=== PATIENT | male | born 1950 | race American Indian/Alaskan Native ===

== ENCOUNTER 2018-08-31 20:36 | Emergency (ER) | payer OTHER ==
[2018-08-31 20:59] VITALS: BP 150/89
[2018-08-31] MEDS ORDERED: MOTRIN PO ONE (21:05)
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
--- NOTE | 2018-09-01 01:33 | XRay Report ---
FINAL REPORT EXAM: XR SPINE CERVICAL 2-3V HISTORY: neck pain TECHNIQUE: 3 views of the cervical spine PRIORS: None. FINDINGS: The vertebral bodies are normal in height. Vertebral alignment is normal. There is moderate loss of disc height and endplate osteophyte formation at C4-5 and C5-6.. There is no evidence of fracture or subluxation. The soft tissues are unremarkable. IMPRESSION: Advanced degenerative disc disease at C4-5 and C5-6.
--- NOTE | 2018-09-01 01:57 | XRay Report ---
FINAL REPORT EXAM: XR SPINE LUMBOSACRAL 2-3V HISTORY: low back pain TECHNIQUE: 2 views of the lumbar spine PRIORS: None. FINDINGS: The lumbar vertebral bodies are normal in height. Vertebral alignment is normal. The disc spaces appear well-preserved. The soft tissues are unremarkable. IMPRESSION: Normal L-spine series.
== END 2018-09-01 02:12 | disposition home or self-care (01) ==
LOC: ED 20:36
DX: S13.4XXA Sprain of ligaments of cervical spine, initial encounter (principal); S39.012A Strain of muscle, fascia and tendon of lower back, initial encounter; G43.909 Migraine, unspecified, not intractable, without status migrainosus; J45.909 Unspecified asthma, uncomplicated; F17.200 Nicotine dependence, unspecified, uncomplicated; V49.49XA Driver injured in collision with other motor vehicles in traffic accident, initial encounter; Y93.89 Activity, other specified; Y92.89 Other specified places as the place of occurrence of the external cause; Y99.8 Other external cause status
CPT/HCPCS: 72040; 72100

== ENCOUNTER 2019-08-22 15:24 | Emergency (ER) | payer MEDICARE, OTHER ==
[2019-08-22 16:16] LABS: Basophils % (Auto) 0.4 % (0.0-1.8); Eosinophils # (Auto) 0.9 K/mm3 (0.0-0.4); Hematocrit 30.3 % (35.5-45.6); Lymphocytes # (Auto) 1.2 K/mm3 (1.2-5.4); Lymphocytes % (Auto) 11.4 % (13.4-35.0); Mean Corpuscular HGB Conc 33 % (32-34); Mean Corpuscular Volume 96 fl (84-94); Monocytes # (Auto) 0.5 K/mm3 (0.0-0.8); Monocytes % (Auto) 4.9 % (0.0-7.3); Platelet Count 346 K/mm3 (140-440); Red Blood Count 3.16 M/mm3 (3.65-5.03); Red Cell Distribution Width 15.3 % (13.2-15.2)
[2019-08-22 16:30] LABS: Albumin 3.8 g/dL (3.9-5); Calcium 8.6 mg/dL (8.4-10.2)
[2019-08-22 17:38] LABS: Bilirubin,Urine NEG (Negative); Blood,Urine NEG (Negative); Color,Urine Yellow (Yellow); Mucus,Urine FEW /HPF; Protein,Urine <15 mg/dL mg/dL (Negative); Urobilinogen,Urine < 2.0 mg/dL (<2.0)
[2019-08-22] MEDS ORDERED: MORPHINE 4 MG/1 ML INJ IV ONE (18:53)
[2019-08-22] MEDS ORDERED: ONDANSETRON 4 MG/2 ML INJ IV ONE (18:53)
[2019-08-22] MEDS ORDERED: SODIUM CHLORIDE 0.9% 1000 ML 1,000 ML IV ONE (18:53)
[2019-08-22] MEDS ORDERED: MORPHINE 2 MG/1 ML INJ ONE ×2 (19:02→21:28)
--- NOTE | 2019-08-22 19:04 | Emergency Department Report ---
ED General Adult HPI - General Chief complaint: Nausea/Vomiting/Diarrhea Stated complaint: NAUSEA/WEAK/STOMACH PAIN Time Seen by Provider: 08/22/19 17:52 Source: patient Mode of arrival: Ambulatory Limitations: No Limitations - History of Present Illness Initial comments: The patient presents to the emergency department with a chief complaint of diffuse abdominal pain that has become progressively worse over the last 2 weeks. The patient does complain of nausea and some vomiting. Patient denies any chest pain, shortness breath, or headache. -: week(s) Location: abdomen Severity scale (0 -10): 6 Quality: sharp Consistency: constant Improves with: none Worsens with: none Associated Symptoms: denies other symptoms Treatments Prior to Arrival: none - Related Data Previous Rx's Medication Instructions Recorded Last Taken Type Cyclobenzaprine HCl [Flexeril 5 MG 5 mg PO QHS PRN #10 tab 09/01/18 Unknown Rx TAB] Ibuprofen [Motrin] 600 mg PO Q8H PRN #20 tablet 09/01/18 Unknown Rx Ciprofloxacin HCl [Ciprofloxacin 500 mg PO Q12HR #20 tab 08/22/19 Unknown Rx TAB] metroNIDAZOLE [Flagyl] 500 mg PO Q12HR #20 tab 08/22/19 Unknown Rx Allergies Allergy/AdvReac Type Severity Reaction Status Date / Time No Known Allergies Allergy Verified 08/22/19 15:40 ED Review of Systems ROS: Stated complaint: NAUSEA/WEAK/STOMACH PAIN Other details as noted in HPI Comment: All other systems reviewed and negative Constitutional: denies: chills, fever Eyes: denies: eye pain, eye discharge, vision change ENT: denies: ear pain, throat pain Respiratory: denies: cough, shortness of breath, wheezing Cardiovascular: denies: chest pain, palpitations Endocrine: no symptoms reported Gastrointestinal: abdominal pain. denies: nausea, diarrhea Genitourinary: denies: urgency, dysuria Musculoskeletal: denies: back pain, joint swelling, arthralgia Skin: denies: rash, lesions Neurological: denies: headache, weakness, paresthesias Psychiatric: denies: anxiety, depression Hematological/Lymphatic: denies: easy bleeding, easy bruising ED Past Medical Hx - Past Medical History Hx Hypertension: Yes Hx Headaches / Migraines: Yes Hx Asthma: Yes Additional medical history: Bronchitis pinched nerve in neck pressing on spinal cord - Surgical History Past Surgical History?: Yes Additional Surgical History: shoulder, hand and knees - Social History Smoking Status: Current Some Day Smoker Substance Use Type: None - Medications Home Medications: Home Medications Medication Instructions Recorded Confirmed Last Taken Type Cyclobenzaprine HCl [Flexeril 5 MG 5 mg PO QHS PRN #10 tab 09/01/18 Unknown Rx TAB] Ibuprofen [Motrin] 600 mg PO Q8H PRN #20 tablet 09/01/18 Unknown Rx Ciprofloxacin HCl [Ciprofloxacin 500 mg PO Q12HR #20 tab 08/22/19 Unknown Rx TAB] metroNIDAZOLE [Flagyl] 500 mg PO Q12HR #20 tab 08/22/19 Unknown Rx ED Physical Exam - General Limitations: No Limitations General appearance: alert, in no apparent distress - Head Head exam: Present: atraumatic, normocephalic - Eye Eye exam: Present: normal appearance, PERRL, EOMI - ENT ENT exam: Present: mucous membranes dry - Neck Neck exam: Present: normal inspection - Respiratory Respiratory exam: Present: normal lung sounds bilaterally. Absent: respiratory distress - Cardiovascular Cardiovascular Exam: Present: regular rate, normal rhythm. Absent: systolic murmur, diastolic murmur, rubs, gallop - GI/Abdominal GI/Abdominal exam: Present: soft, tenderness (tenderness to palpation of the epigastrium and right upper quadrant on exam ), normal bowel sounds. Absent: distended - Rectal Rectal exam: Present: deferred - Extremities Exam Extremities exam: Present: normal inspection - Back Exam Back exam: Present: normal inspection - Neurological Exam Neurological exam: Present: alert, oriented X3 - Psychiatric Psychiatric exam: Present: normal affect, normal mood - Skin Skin exam: Present: warm, dry, intact, normal color. Absent: rash ED Course Vital Signs 08/22/19 08/22/19 08/22/19 15:27 17:32 17:46 Temperature 98 F Pulse Rate 95 H Respiratory 18 Rate Blood Pressure Blood Pressure 141/89 [Right] O2 Sat by Pulse 100 73 L 98 Oximetry 08/22/19 08/22/19 08/22/19 18:00 18:16 18:22 Temperature 99.4 F Pulse Rate 87 Respiratory 17 Rate Blood Pressure Blood Pressure 162/88 [Right] O2 Sat by Pulse 98 99 98 Oximetry 08/22/19 08/22/19 18:30 20:04 Temperature Pulse Rate 83 Respiratory 15 Rate Blood Pressure 162/88 152/78 Blood Pressure [Right] O2 Sat by Pulse 99 Oximetry ED Medical Decision Making - Lab Data Result diagrams: 08/22/19 15:57 08/22/19 15:57 Lab Results 08/22/19 08/22/19 08/22/19 Range/Units 15:57 15:57 17:28 WBC 10.1 (4.5-11.0) K/mm3 RBC 3.16 L (3.65-5.03) M/mm3 Hgb 10.0 L (11.8-15.2) gm/dl Hct 30.3 L (35.5-45.6) % MCV 96 H (84-94) fl MCH 32 (28-32) pg MCHC 33 (32-34) % RDW 15.3 H (13.2-15.2) % Plt Count 346 (140-440) K/mm3 Lymph % (Auto) 11.4 L (13.4-35.0) % Moffat % (Auto) 4.9 (0.0-7.3) % Eos % (Auto) 9.0 H (0.0-4.3) % Baso % (Auto) 0.4 (0.0-1.8) % Lymph # 1.2 (1.2-5.4) K/mm3 Moffat # 0.5 (0.0-0.8) K/mm3 Eos # 0.9 H (0.0-0.4) K/mm3 Baso # 0.0 (0.0-0.1) K/mm3 Seg Neutrophils % 74.3 H (40.0-70.0) % Seg Neutrophils # 7.5 (1.8-7.7) K/mm3 Sodium 140 (137-145) mmol/L Potassium 5.8 H (3.6-5.0) mmol/L Chloride 103.3 (98-107) mmol/L Carbon Dioxide 28 (22-30) mmol/L Anion Gap 15 mmol/L BUN 10 (9-20) mg/dL Creatinine 1.5 (0.8-1.5) mg/dL Estimated GFR 56 ml/min BUN/Creatinine Ratio 7 % Glucose 120 H (75-100) mg/dL Calcium 8.6 (8.4-10.2) mg/dL Total Bilirubin 0.20 (0.1-1.2) mg/dL AST 23 (5-40) units/L ALT 16 (7-56) units/L Alkaline Phosphatase 81 (35-129) units/L Troponin T (0.00-0.029) ng/mL Total Protein 7.3 (6.3-8.2) g/dL Albumin 3.8 L (3.9-5) g/dL Albumin/Globulin Ratio 1.1 % Lipase 41 (13-60) units/L Urine Color Yellow (Yellow) Urine Turbidity Clear (Clear) Urine pH 6.0 (5.0-7.0) Ur Specific [place] 1.011 (1.003-1.030) Urine Protein <15 mg/dl (Negative) mg/dL Urine Glucose (UA) Neg (Negative) mg/dL Urine Ketones Neg (Negative) mg/dL Urine Blood Neg (Negative) Urine Nitrite Neg (Negative) Urine Bilirubin Neg (Negative) Urine Urobilinogen < 2.0 (<2.0) mg/dL Ur Leukocyte Esterase Neg (Negative) Urine WBC (Auto) 1.0 (0.0-6.0) /HPF Urine RBC (Auto) 3.0 (0.0-6.0) /HPF Urine Mucus Few /HPF 08/22/19 Range/Units 19:12 WBC (4.5-11.0) K/mm3 RBC (3.65-5.03) M/mm3 Hgb (11.8-15.2) gm/dl Hct (35.5-45.6) % MCV (84-94) fl MCH (28-32) pg MCHC (32-34) % RDW (13.2-15.2) % Plt Count (140-440) K/mm3 Lymph % (Auto) (13.4-35.0) % Moffat % (Auto) (0.0-7.3) % Eos % (Auto) (0.0-4.3) % Baso % (Auto) (0.0-1.8) % Lymph # (1.2-5.4) K/mm3 Moffat # (0.0-0.8) K/mm3 Eos # (0.0-0.4) K/mm3 Baso # (0.0-0.1) K/mm3 Seg Neutrophils % (40.0-70.0) % Seg Neutrophils # (1.8-7.7) K/mm3 Sodium (137-145) mmol/L Potassium (3.6-5.0) mmol/L Chloride (98-107) mmol/L Carbon Dioxide (22-30) mmol/L Anion Gap mmol/L BUN (9-20) mg/dL Creatinine (0.8-1.5) mg/dL Estimated GFR ml/min BUN/Creatinine Ratio % Glucose (75-100) mg/dL Calcium (8.4-10.2) mg/dL Total Bilirubin (0.1-1.2) mg/dL AST (5-40) units/L ALT (7-56) units/L Alkaline Phosphatase (35-129) units/L Troponin T < 0.010 (0.00-0.029) ng/mL Total Protein (6.3-8.2) g/dL Albumin (3.9-5) g/dL Albumin/Globulin Ratio % Lipase (13-60) units/L Urine Color (Yellow) Urine Turbidity (Clear) Urine pH (5.0-7.0) Ur Specific [place] (1.003-1.030) Urine Protein (Negative) mg/dL Urine Glucose (UA) (Negative) mg/dL Urine Ketones (Negative) mg/dL Urine Blood (Negative) Urine Nitrite (Negative) Urine Bilirubin (Negative) Urine Urobilinogen (<2.0) mg/dL Ur Leukocyte Esterase (Negative) Urine WBC (Auto) (0.0-6.0) /HPF Urine RBC (Auto) (0.0-6.0) /HPF Urine Mucus /HPF - Radiology Data Radiology results: report reviewed - Medical Decision Making Patient was discussed with Dr. Ravi agreed that the patient should be admitted for IV therapy such as fluids and antibiotics, ultrasound, and further evaluation. Discussed the plan of care with patient and the patient stated that he had things to type the home and did not want to stay any longer. The patient was very polite and this request I did discuss my clinical findings and my concern for further deterioration which could lead to and the patient stated he understood that and will follow with his primary care physician Critical care attestation.: If time is entered above; I have spent that time in minutes in the direct care of this critically ill patient, excluding procedure time. ED Disposition Clinical Impression: Duodenitis, Biliary colic, Cholelithiases, Gastritis Disposition: - LEFT AGAINST MED ADVICE Is pt being admited?: No Does the pt Need Aspirin: No Condition: Stable Instructions: Biliary Colic (ED), Gastritis (ED) Prescriptions: Ciprofloxacin HCl [Ciprofloxacin TAB] 500 mg PO Q12HR #20 tab metroNIDAZOLE [Flagyl] 500 mg PO Q12HR #20 tab Forms: AMA Form Time of Disposition: 22:34
--- NOTE | 2019-08-22 20:30 | Cat Scan Report ---
CT abdomen pelvis w con INDICATION: epigatric abdominal pain. TECHNIQUE: All CT scans at this location are performed using CT dose reduction for ALARA by means of automated e xposure control. COMPARISON: None available. FINDINGS: Calcified nodules in the right lung base but no acute disease in the bases. Tiny stones are demonstrated in the neck of the gallbladder. No obvious gallbladder wall thickening o r pericholecystic fluid. There is mild intrahepatic biliary dilatation, primarily in the left lobe. E xtrahepatic common duct is normal in caliber. There appears to be inflammatory change and wall thickening of the very distal stomach and proximal d uodenum, suggesting gastritis and duodenitis. No free air or free fluid. Spleen and pancreas are negative. Abdominal aorta is normal in size. Small, benign-appearing right ad renal nodule. Benign-appearing bilateral renal cysts. Atherosclerotic but normal sized abdominal aort a. Pelvis Appendix cannot be identified, but I see no pericecal inflammation. Moderate sigmoid diverticulosis. No free fluid or inflammation. Urinary bladder is thick walled, and the prostate is significantly enl arged. IMPRESSION: 1. Tiny stones in the neck of the gallbladder, with mild left lobe intrahepatic biliary dilatation, b ut no convincing CT evidence of cholecystitis. 2. Inflammatory change in the distal stomach and proximal duodenum, suggesting distal gastritis and d uodenitis. I certainly cannot exclude a nonperforated ulcer. 3. Significant prostate enlargement with bladder wall thickening, suggesting some degree of bladder o utlet obstruction. No hydronephrosis. Signer Name: Alonso Noel MD Signed: 08/22/2019 8:26 PM Workstation Name: [id number]
[2019-08-22] MEDS ORDERED: MORPHINE 2 MG/1 ML INJ IV ONE (21:27)
[2019-08-22] MEDS ORDERED: PIPERACIL/TAZOBACTA 4.5/NS 100 4.5 GM/100 ML VIAL IV ONE (21:45)
[2019-08-23 00:15] VITALS: BP 144/78
== END 2019-08-23 00:16 | disposition left against medical advice (07) ==
LOC: ED 15:24
DX: K29.60 Other gastritis without bleeding (principal); K29.80 Duodenitis without bleeding; K80.50 Calculus of bile duct without cholangitis or cholecystitis without obstruction
CPT/HCPCS: 36415; 74177; 80053; 81001; 83690; 84484; 85025; 93005; 93010; 96361; 96365; 96375; 96376; 99284; J2270; J2405; J2543; J7030; Q9967

== ENCOUNTER 2019-09-19 10:10 | Outpatient (CLI) | payer MEDICARE ==
--- NOTE | 2019-09-19 12:53 | Ultrasound Report ---
ULTRASOUND ABDOMEN, COMPLETE INDICATION: R10.816 EPIGASTRIC ABDOMINAL TENDERNESS/R80.20 CALCULUS OF GALLBL. COMPARISON: No relevant prior imaging study available. FINDINGS: Pancreas: No significant abnormality in the visualized proximal pancreas.. Abdominal Aorta: No significant abnormality. IVC: No significant abnormality. Liver: The liver measures 15.5 cm in length. No significant abnormality. Normal hepatopedal blood fl ow in the main portal vein. Gallbladder: An approximate 8 mm gallstone is identified in the neck of the gallbladder. No abnormal gallbladder dilatation or wall thickening.. Bile ducts: No significant abnormality. Common bile duct measures 5 mm. Kidneys: Right: 10.5 cm in length. A 3.3 cm cyst is identified in the mid right kidney. Renal echot exture is slightly increased.. Left: 10.1 cm in length. A 2.9 cm cyst is noted in the inferior left kidney. Renal echotexture is slightly increased.. Spleen: No significant abnormality. Free fluid: None. Additional Findings: None. IMPRESSION: Cholelithiasis. No evidence for acute cholecystitis. Nonspecific renal parenchymal disease. Bilateral renal cysts.. Signer Name: Nathan Rose Jr, MD Signed: 09/19/2019 12:49 PM Workstation Name: [id number]
== END 2019-09-19 10:11 | disposition home or self-care (01) ==
LOC: US 10:10
PROVIDERS: ATTEND Surgery
DX: K80.20 Calculus of gallbladder without cholecystitis without obstruction (principal); R10.816 Epigastric abdominal tenderness; I10 Essential (primary) hypertension; J45.909 Unspecified asthma, uncomplicated
CPT/HCPCS: 76700